=== PATIENT | female | born 1985 | race Caucasian/White ===

== ENCOUNTER 2022-02-02 06:54 | Day surgery (SDC) | payer BC ==
[~2022-02-02] VITALS: Ht 167.6 cm; Wt 116.3 kg
[~2022-02-02 06:54] MED LIST: AMITIZA 8MCG8 MCG PO; MIRENA52 MG IY; NO HOME MEDICATIONS; NORCO 325 MG-51 TAB PO; NORCO 325 MG-7.1 TAB PO; TRAMADOL50 MG PO
[2022-02-02] MEDS ORDERED: MAGNESIUM250 M1 PO (07:28)
[2022-02-02] MEDS ORDERED: LINSEED OIL 1 ML1 ML (07:28)
[2022-02-02 08:45] VITALS: BP 127/73; PULSE 69; TEMP 97.5
[2022-02-02 09:00] VITALS: BP 124/71; PULSE 68
[2022-02-02 16:04] VITALS: BP 132/79; PULSE 78; TEMP 97.4
== END 2022-02-02 09:25 | disposition home or self-care (01) ==
LOC: SDCO 06:54
DX: Z12.11 Encounter for screening for malignant neoplasm of colon (principal); D12.4 Benign neoplasm of descending colon; D12.5 Benign neoplasm of sigmoid colon; K64.0 First degree hemorrhoids
CPT/HCPCS: J2704; J3010; J7120